=== PATIENT | female | born 1980 | race African-American/Black ===

== ENCOUNTER 2017-01-29 11:15 | Observation (INO) | payer MEDICAID ==
[~2017-01-29] VITALS: Ht 170.2 cm; Wt 57.2 kg
[2017-01-29 13:53] LABS: Urine Bilirubin Negative (Negative); Urine Blood Negative /uL (Negative); Urine Color Yellow (Yellow); Urine Glucose Normal (Normal); Urine Ketone Negative (Negative); Urine Nitrite Negative (Negative); Urine RBC 1 /hpf (0 - 4); Urine Squamous Epithelial Cell FEW /hpf (<5); Urine Urobilinogen Normal (Negative); Urine pH 7.5 (5.0-8.0)
[2017-01-29 15:35] VITALS: BP 126/71
== END 2017-01-29 17:09 | disposition home or self-care (01) | DRG 815 ==
LOC: EDUNIT# 11:15 → EDBD 11:15 → ER 11:19 → OVERFLOW 14:24 → ER 17:09
PROVIDERS: ADMIT Family Medicine; ATTEND Family Medicine
DX: Z04.1 Encounter for examination and observation following transport accident (principal); Z82.49 Family history of ischemic heart disease and other diseases of the circulatory system; V47.5XXA Car driver injured in collision with fixed or stationary object in traffic accident, initial encounter; Y93.89 Activity, other specified; Y92.89 Other specified places as the place of occurrence of the external cause; Y99.8 Other external cause status
CPT/HCPCS: 70450; 71010; 80307; 81001; 81025; 82962; 94761; 99285; G0378